=== PATIENT | male | born 1945 | race Hispanic/Latino ===

== ENCOUNTER 2021-07-31 07:38 | Emergency (ER) | payer OTHER ==
--- OUTSIDE RECORDS SUMMARY | 2021-07-31 07:43 | XMS REPORT | Continuity of Care Document ---
:1945 Author Organization [facility] t Address [address] [place] [address] Care Team Providers Name Role Phone Marisel CUETO Primary Care Physician NADIA Attending Clinician Unavailable Pravin CUETO, T. Attending Clinician Moira Avalos MD Attending Clinician NADIA Admitting Clinician Unavailable BAILEY Admitting Clinician Unavailable Payers Payer Name Policy Type Policy Number Effective Date Expiration Date Brittnee hewitt [employer] (MEDICARE [id number] 2019 REPLACEMENT PPO) 00:00:00 [employer] (PPO) [id number] 2019 00:00:00 Problems Condition Condition Condition Status Onset Resolution Last Treating Co mments Source Name Details Category Date Date Treatment Clinician Date Salmonella Salmonella Problem Active [facility] gastroente Gastroente 7-15 da ritis [facility] Enterocoli Enterocoli Problem Active [facility] tis tis 7-14 da [facility] Myopia Myopia Problem Active [facility] 3-19 da 00:[facility] Regular Regular Problem Active [facility]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 Astigmatis 3-19 da m m 00:[facility] Presbyopia Presbyopia Problem Active [facility] 3-19 da 00:[facility] Diabetic Diabetic Problem Active [facility] retinopath Retinopath 319 da y y 00:00: [facility] screening Screening 00 al offered Offered [facility] Hypertensi Hypertensi Problem Active [facility] ve ve 703 da disorder Disorder 00:00: [facility] Hyperglyce Hyperglyce Problem Active [facility] tonya due to tonya Due to 11-22 da type 2 Type 2 00:00: [facility] diabetes Diabetes 00 al mellitus Mellitus [facility] Facial Facial Problem Active [facility] weakness, Weakness, da lower Lower [facility] motor Motor al neurone Neurone [facility] Finding of Finding of Problem Active [facility] shoulder Shoulder da joint Joint [facility] Backache Backache Problem Active [place] [facility] Cough Cough Problem Active [facility] Strain of Strain of Problem Active [facility] abdominal Abdominal da muscle Muscle [facility] Contusion Contusion Problem Active [facility] of hip of Hip da [facility] Fall Fall Problem [facility] [place] Allergies, Adverse Reactions, Alerts This patient has no known allergies or adverse reactions. Social History Social Habit Start Date Stop Date Quantity Comments Source Tobacco use and 2020-12-03 2020-12-03 Never used [facility] exposure 00:00:00 00:00:00 Hospital Alcohol intake 2020-12-03 2020-12-03 Ex-drinker [facility] 00:00:00 00:00:00 (finding) Hospital Sex Assigned At [birth year] [facility] 00:[facility]:00 [facility] Smoking Status Start Date Stop Date Source Never smoker [facility] Medications Ordered Filled Start Stop Current Ordering Indication Dosage Frequency Signature Comments Components Source Medication Medication Date Date Medication? Clinician (SIG) Name Name ondansetron 2020- No 4mg Q8H Take 4 mg [facility] (ZOFRAN) 4 12-[address] MG tablet 21:00: 00:00 every 8 [facility] 38 :00 (eight) l hours as needed for nausea or vomiting. amoxicillin 2020- No 1{tbl} Q.5D Take 1 M [facility]i -pot 12-[address] clavulanate 21:00: 00:00 mouth 2 [facility] (AUGMENTIN) 38 :00 (two) l 875-125 mg times a per tablet day. glipiZIDE Yes 2.5mg QD Take 2.5 [facility] (GLUCOTROL) 7-[address] 2.5 MG 24 21:00: mouth [facility]osp[facility] hr tablet 33 daily. l enalapril Yes 2.5mg QD Take 2.5 [facility] (VASOTEC) 7-[address] 2.5 MG 21:00: mouth [facility] tablet 33 daily. l metFORMIN 0 Yes 1000mg Q.5D Take 1,000 [facility] (GLUCOPHAGE 7-[address] ) 1,000 mg 21:00: mouth 2 [facility] tablet 33 (two) l times a day with meals. SITagliptin 0 Yes 100mg QD Take 100 M [facility] (JANUVIA) 7-[address] 100 MG 21:00: mouth [facility]osp[facility] tablet 33 daily. l atorvastati Yes 10mg QD Take 10 mg [facility] n (LIPITOR) -[address] 10 mg 21:00: daily. [facility]ospita tablet 33 l levoFLOXaci 2020- No 750mg QD Take 1 Me thodi n 12-[address] (Levaquin) 00:00: 04:59 (750 mg [facility] she[facility] 750 MG 00 :00 total) by l tablet mouth daily for 7 days. Accu-Chek Accu-Chek No Accu-Chek [facility] Softclix Softclix Softclix da Lancets Lancets Lancets [facility] albuterol albuterol No albuterol [place] sulfate HFA sulfate HFA sulfate da 90 90 HFA 90 [facility] mcg/actuati mcg/actuati mcg/actuat al on aerosol on aerosol ion Hea lth inhaler inhaler aerosol Outrea c Inhale 2 Inhale 2 inhaler h puffs every puffs every Inhale 2 Program 4-6 hours 4-6 hours puffs by by every 4-6 inhalation inhalation hours by route as route as inhalation needed for needed for route as 30 days. 30 days. needed for 30 days. atorvastati atorvastati No 10mg atorvastat [place] n 10 mg n 10 mg in 10 mg da tablet 10 tablet 10 tablet 10 [facility] mg by oral mg by oral mg by oral al route. route. route. [facility] BD Alcohol BD Alcohol No BD Alcohol [place] Swabs Apply Swabs Apply Swabs da 1 pad every 1 pad every Apply 1 [facility] day by day by pad every al topical topical day by Health route as route as topical Outr eac directed. directed. route as h directed. Program cefdinir cefdinir No cefdinir [place] 300 mg 300 mg 300 mg da capsule capsule capsule [facility] p Take 1 Take 1 Take 1 al capsule capsule capsule Health every 12 every 12 every 12 Out reac hours by hours by hours by h oral route oral route oral route Program for 10 for 10 for 10 days. days. days. clotrimazol clotrimazol No clotrimazo [place] e 1 % e 1 % le 1 % da topical topical topical [facility] p cream APPLY cream APPLY cream al CREAM CREAM APPLY Health TOPICALLY TOPICALLY CREAM Outr eac TO AFFECTED TO AFFECTED TOPICALLY h AND AND TO Program SURROUNDING SURROUNDING AFFECTED AREA(S) OF AREA(S) OF AND SKIN TWICE SKIN TWICE SURROUNDIN DAILY IN DAILY IN G AREA(S) THE MORNING THE MORNING OF SKIN AND IN THE AND IN THE TWICE EVENING EVENING DAILY IN THE MORNING AND IN THE EVENING enalapril enalapril No 2.5mg Q1D enalapril [place] maleate 2.5 maleate 2.5 maleate da mg tablet mg tablet 2.5 mg Epi scop Take 2.5 mg Take 2.5 mg tablet al every day every day Take 2.5 H ealth by oral by oral mg every Outre ac route. route. day by h oral Program route. fluconazole fluconazole No fluconazol [place] 150 mg 150 mg e 150 mg da tablet TAKE tablet TAKE tablet [facility] ONE TABLET ONE TABLET TAKE ONE al BY MOUTH BY MOUTH TABLET BY Health A SINGLE A SINGLE MOUTH A O utreac DOSE DOSE SINGLE h DOSE Program glipizide glipizide No 2.5mg glipizide [place] ER 2.5 mg ER 2.5 mg ER 2.5 mg da tablet, tablet, tablet, [facility] p extended extended extended al release 24 release 24 release 24 Health hr 2.5 mg hr 2.5 mg hr 2.5 mg Outreac by oral by oral by oral h route. route. route. Program Jardiance Jardiance No Jardiance [place] 10 mg 10 mg 10 mg da tablet Take tablet Take tablet [facility] 1 tablet(s) 1 tablet(s) Take 1 al every day every day tablet(s) Health by oral by oral every day Outr eac route. route. by oral h route. Program metformin metformin No 1000mg BID metformin [place] 1,000 mg 1,000 mg 1,000 mg da tablet tablet tablet [facility] 1000 mg 1000 mg 1000 mg al twice a day twice a day twice a Health by oral by oral day by Outreac route. route. oral h route. Program naftifine 2 naftifine 2 No naftifine [place] % topical % topical 2 % da cream APPLY cream APPLY topical [facility] A THIN A THIN cream al LAYER TO LAYER TO APPLY A H ealth THE THE THIN LAYER Outreac AFFECTED AFFECTED TO THE h AREA(S) AREA(S) AFFECTED Progr am PLUS A 0.5 PLUS A 0.5 AREA(S) INCH MARGIN INCH MARGIN PLUS A 0.5 OF HEALTHY OF HEALTHY INCH SURROUNDING SURROUNDING MARGIN OF SKIN BY SKIN BY HEALTHY TOPICAL TOPICAL SURROUNDIN ROUTE ONCE ROUTE ONCE G SKIN BY DAILY FOR 2 DAILY FOR 2 TOPICAL WEEKS WEEKS ROUTE ONCE DAILY FOR 2 WEEKS omeprazole omeprazole No omeprazole [place] 40 mg 40 mg 40 mg da capsule,del capsule,del capsule,de [facility] ayed ayprudence layed al release release release Health take 1 take 1 take 1 Outreac capsule by capsule by capsule by h mouth every mouth every mouth Program other day other day every 30-45 min 30-45 min other day before before 30-45 min eating eating before eating OneTouch OneTouch No OneTouch [facility] Verio test Verio test Verio test da strips USE strips USE strips USE [facility] 1 STRIP 1 STRIP 1 STRIP al ONCE DAILY ONCE DAILY ONCE DAILY Health FOR BLOOD FOR BLOOD FOR BLOOD Outreac GLUCOSE GLUCOSE GLUCOSE h CHECK CHECK CHECK Program Ozempic Ozempic No Ozempic [facility] 0.25 mg or 0.25 mg or 0.25 mg or da 0.5 mg (2 0.5 mg (2 0.5 mg (2 [facility] mg/1.5 mL) mg/1.5 mL) mg/1.5 mL) al [facility] pen s pen us pen Outreac injector injector injector h INJECT 0.5 INJECT 0.5 INJECT 0.5 Program MG UNDER MG UNDER MG UNDER THE SKIN THE SKIN THE SKIN EVERY WEEK EVERY WEEK EVERY WEEK triamcinolo triamcinolo No triamcinol [place] ne ne one da acetonide acetonide acetonide [facility] 0.025 % 0.025 % 0.025 % al topical topical topical Health cream APPLY cream APPLY cream Outreac CREAM CREAM APPLY h TOPICALLY TOPICALLY CREAM Prog jus TO AFFECTED TO AFFECTED TOPICALLY AREA TWICE AREA TWICE TO DAILY DAILY AFFECTED AREA TWICE DAILY [place] DM [place] DM No [place] DM [place] 10 mg-18 10 mg-18 10 mg-18 da mg-200 mg-200 mg-200 [facility] mg/15 mL mg/15 mL mg/15 mL al oral liquid oral liquid oral H ealth Take 10 mL Take 10 mL liquid O utreac every 4-6 every 4-6 Take 10 mL h hours by hours by every 4-6 Pr ogram oral route oral route hours by as needed. as needed. oral route as needed. Xopenex HFA Xopenex HFA No 2puff(s Q5H Xopenex [place] 45 45 ) HFA 45 da mcg/actuati mcg/actuati mcg/actuat [facility] on aerosol on aerosol ion al inhaler inhaler aerosol Health Inhale 2 Inhale 2 inhaler Outr eac puffs every puffs every Inhale 2 h 4-6 hours 4-6 hours puffs Prog jus by by every 4-6 inhalation inhalation hours by route as route as inhalation needed. needed. route as needed. Immunizations Ordered Immunization Filled Immunization Date Status Commen ts Source Name Name Influenza vaccine, Influenza vaccine, 2021-04-08 Completed [facility] quadrivalent, quadrivalent, 12:26:34 [facility] adjuvanted adjuvanted [facility] COVID-19, mRNA, COVID-19, mRNA, 2021-04-01 Completed [facility] emma LNP-S, PF, 100 LNP-S, PF, 100 15:54:09 [facility] pal mcg/0.5 mL dose mcg/0.5 mL dose [facility] (Moderna) (Moderna) Program pneumococcal pneumococcal 2020-10-27 Completed [facility] polysaccharide PPV23 polysaccharide PPV23 16:31:00 [facility] COVID-19, mRNA, COVID-19, mRNA, 2020-07-25 Completed [facility] emma LNP-S, PF, 100 LNP-S, PF, 100 13:38:47 [facility] pal mcg/0.5 mL dose mcg/0.5 mL dose [facility] (Moderna) (Moderna) Program COVID-19, mRNA, COVID-19, mRNA, 2020-06-18 Completed [facility] em[facility] LNP-S, PF, 100 LNP-S, PF, 100 12:55:57 [facility] pal mcg/0.5 mL dose mcg/0.5 mL dose [facility] (Moderna) (Moderna) Program influenza, influenza, 2020-03-17 Completed [facility] injectable, injectable, 00:00:00 [facility] quadrivalent quadrivalent [facility] Tdap Tdap 2019-12-20 Completed [facility] 00:00:00 [facility] zoster recombinant zoster recombinant 2019-10-30 Completed [facility] 00:00:00 [facility] influenza, influenza, 2019-03-28 Completed [facility] injectable, injectable, 00:00:00 [facility] quadrivalent quadrivalent [facility] influenza, influenza, 2018-02-20 Completed [facility] injectable, injectable, 00:00:00 [facility] quadrivalent quadrivalent [facility] influenza, influenza, 2017-02-17 Completed [facility] unspecified unspecified 00:00:00 [facility] formulation formulation [facility] Outre [facility] pneumococcal pneumococcal 2015-07-17 Completed [facility] conjugate PCV 13 conjugate PCV 13 00:00:00 [facility] Tdap Tdap 2013-12-10 Completed [facility] 00:00:00 [facility] pneumococcal pneumococcal 2012-09-20 Completed [facility] polysaccharide PPV23 polysaccharide PPV23 00:00:00 [facility] Vital Signs Vital Name Observation Time Observation Value Comments Source BP Diastolic 2021-06-03 00:00:00 78 mm[Hg] [place] [facility] Height 2021-06-03 00:00:00 64 [in_i] [place] [facility] BMI (Body Mass 2021-06-03 00:00:00 26.4 kg/m2 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 Index) [facility] BP Systolic 2021-06-03 00:00:00 116 mm[Hg] [place] [facility] Body Weight 2021-06-03 00:00:00 2464 [oz_av] [place] [facility] BP Diastolic 2021-05-06 00:00:00 75 mm[Hg] [place] [facility] Height 2021-05-06 00:00:00 64 [in_i] [place] [facility] BMI (Body Mass 2021-05-06 00:00:00 26.6 kg/m2 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 Index) [facility] BP Systolic 2021-05-06 00:00:00 123 mm[Hg] [place] [facility] Body Weight 2021-05-06 00:00:00 2482 [oz_av] [place] [facility] BP Diastolic 2021-04-08 00:00:00 82 mm[Hg] [place] [facility] Height 2021-04-08 00:00:00 64 [in_i] [place] [facility] BMI (Body Mass 2021-04-08 00:00:00 26.6 kg/m2 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 Index) [facility] BP Systolic 2021-04-08 00:00:00 146 mm[Hg] [place] [facility] Body Weight 2021-04-08 00:00:00 2480 [oz_av] [place] [facility] BP Diastolic 2021-02-22 00:00:00 74 mm[Hg] [place] [facility] Height 2021-02-22 00:00:00 64 [in_i] [place] [facility] BMI (Body Mass 2021-02-22 00:00:00 27.6 kg/m2 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 Index) [facility] BP Systolic 2021-02-22 00:00:00 129 mm[Hg] [place] [facility] Body Weight 2021-02-22 00:00:00 2572.8 [oz_av] 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 BP Diastolic 2021-01-05 00:00:00 68 mm[Hg] [place] [facility] Height 2021-01-05 00:00:00 64 [in_i] [place] [facility] BMI (Body Mass 2021-01-05 00:00:00 27.1 kg/m2 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 Index) [facility] BP Systolic 2021-01-05 00:00:00 112 mm[Hg] [place] [facility] Body Weight 2021-01-05 00:00:00 2528 [oz_av] [place] [facility] BP Diastolic 2020-12-15 00:00:00 74 mm[Hg] [place] [facility] Height 2020-12-15 00:00:00 64 [in_i] [place] [facility] BMI (Body Mass 2020-12-15 00:00:00 26.8 kg/m2 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 Index) [facility] BP Systolic 2020-12-15 00:00:00 117 mm[Hg] [place] [facility] Body Weight 2020-12-15 00:00:00 2496 [oz_av] [place] [facility] Height 2020-12-01 00:00:00 64 [in_i] [place] [facility] BMI (Body Mass 2020-12-01 00:00:00 28.8 kg/m2 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 Index) [facility] Body Weight 2020-12-01 00:00:00 2688 [oz_av] [place] [facility] BP Diastolic 2020-10-27 00:00:00 56 mm[Hg] [place] [facility] Height 2020-10-27 00:00:00 64 [in_i] [place] [facility] BMI (Body Mass 2020-10-27 00:00:00 28.9 kg/m2 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 Index) [facility] BP Systolic 2020-10-27 00:00:00 106 mm[Hg] [place] [facility] Body Weight 2020-10-27 00:00:00 2691.2 [oz_av] 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 BP Diastolic 2020-08-25 00:00:00 74 mm[Hg] [place] [facility] Height 2020-08-25 00:00:00 64 [in_i] [place] [facility] BMI (Body Mass 2020-08-25 00:00:00 29 kg/m2 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 Index) [facility] BP Systolic 2020-08-25 00:00:00 122 mm[Hg] [place] [facility] Body Weight 2020-08-25 00:00:00 2704 [oz_av] [place] [facility] BP Diastolic 2020-05-22 00:00:00 76 mm[Hg] [place] [facility] Height 2020-05-22 00:00:00 64 [in_i] [place] [facility] BMI (Body Mass 2020-05-22 00:00:00 29.5 kg/m2 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 Index) [facility] BP Systolic 2020-05-22 00:00:00 122 mm[Hg] [place] [facility] Body Weight 2020-05-22 00:00:00 2752 [oz_av] [place] [facility] BP Diastolic 2019-12-19 00:00:00 62 mm[Hg] [place] [facility] Height 2019-12-19 00:00:00 64 [in_i] [place] [facility] BMI (Body Mass 2019-12-19 00:00:00 29.1 kg/m2 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 Index) [facility] BP Systolic 2019-12-19 00:00:00 106 mm[Hg] [place] [facility] Body Weight 2019-12-19 00:00:00 2712 [oz_av] [place] [facility] BP Diastolic 2019-11-05 00:00:00 80 mm[Hg] [place] [facility] Height 2019-11-05 00:00:00 64 [in_i] [place] [facility] BMI (Body Mass 2019-11-05 00:00:00 29.2 kg/m2 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 Index) [facility] BP Systolic 2019-11-05 00:00:00 122 mm[Hg] [place] [facility] Body Weight 2019-11-05 00:00:00 2724.8 [oz_av] 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 Height 2019-11-02 00:00:00 64 [in_i] [place] [facility] Height 2019-09-10 00:00:00 64 [in_i] [place] [facility] BP Diastolic 2019-08-07 00:00:00 81 mm[Hg] [place] [facility] Height 2019-08-07 00:00:00 64 [in_i] [place] [facility] BP Systolic 2019-08-07 00:00:00 120 mm[Hg] [place] [facility] BP Diastolic 2019-07-10 00:00:00 73 mm[Hg] [place] [facility] Height 2019-07-10 00:00:00 64 [in_i] [place] [facility] BMI (Body Mass 2019-07-10 00:00:00 29.6 kg/m2 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 Index) [facility] BP Systolic 2019-07-10 00:00:00 123 mm[Hg] [place] [facility] Body Weight 2019-07-10 00:00:00 172.2 [lb_av] [place] [facility] BP Diastolic 2019-07-02 00:00:00 72 mm[Hg] [place] [facility] Height 2019-07-02 00:00:00 64 [in_i] [place] [facility] BMI (Body Mass 2019-07-02 00:00:00 29.5 kg/m2 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 Index) [facility] BP Systolic 2019-07-02 00:00:00 126 mm[Hg] [place] [facility] Body Weight 2019-07-02 00:00:00 172.1 [lb_av] [place] [facility] BP Diastolic 2019-05-25 00:00:00 78 mm[Hg] [place] [facility] Height 2019-05-25 00:00:00 64 [in_i] [place] [facility] BMI (Body Mass 2019-05-25 00:00:00 29.9 kg/m2 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 Index) [facility] BP Systolic 2019-05-25 00:00:00 138 mm[Hg] [place] [facility] Body Weight 2019-05-25 00:00:00 174.4 [lb_av] [place] [facility] BP Diastolic 2019-05-10 00:00:00 88 mm[Hg] [place] [facility] Height 2019-05-10 00:00:00 64 [in_i] [place] [facility] BMI (Body Mass 2019-05-10 00:00:00 30 kg/m2 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 Index) [facility] BP Systolic 2019-05-10 00:00:00 150 mm[Hg] [place] [facility] Body Weight 2019-05-10 00:00:00 175 [lb_av] [place] [facility] BP Diastolic 2019-02-22 00:00:00 74 mm[Hg] [place] [facility] Height 2019-02-22 00:00:00 64 [in_i] [place] [facility] BMI (Body Mass 2019-02-22 00:00:00 30.1 kg/m2 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 Index) [facility] BP Systolic 2019-02-22 00:00:00 122 mm[Hg] [place] [facility] Body Weight 2019-02-22 00:00:00 175.6 [lb_av] [place] [facility] BP Diastolic 2019-01-24 00:00:00 70 mm[Hg] [place] [facility] Height 2019-01-24 00:00:00 64 [in_i] [place] [facility] BMI (Body Mass 2019-01-24 00:00:00 29.7 kg/m2 [facility] cancer 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 Index) [facility] BP Systolic 2019-01-24 00:00:00 122 mm[Hg] [place] [facility] Body Weight 2019-01-24 00:00:00 173.2 [lb_av] [place] [facility] Systolic blood 2020-12-08 16:26:48 122 mm[Hg] [facility] pressure Diastolic blood 2020-12-08 16:26:48 73 mm[Hg] [facility] pressure Heart rate 2020-12-08 16:26:48 72 /min [facility] Body temperature 2020-12-08 16:26:48 36.06 Sravani [facility] Respiratory rate 2020-12-08 16:26:48 16 /min [facility] Oxygen saturation in 2020-12-08 16:26:48 94 /min [facility] Arterial blood by Pulse oximetry Body weight 2020-12-03 20:04:00 71.85 kg [facility] Procedures Procedure Date / Time Performing Clinician Source Performed POC GLUCOSE 2020-12-08 16:28:00 [facility] POC GLUCOSE 2020-12-08 12:21:00 [facility] CBC WITH PLATELET AND 2020-12-08 11:25:00 [place] [facility] DIFFERENTIAL [facility] BASIC METABOLIC PANEL 2020-12-08 11:25:00 [place] [facility] MAGNESIUM LEVEL 2020-12-08 11:25:00 [facility] PHOSPHORUS LEVEL 2020-12-08 11:25:00 [facility] [facility] ESTIMATED GFR 2020-12-08 11:25:00 [facility] [place] MANUAL DIFFERENTIAL 2020-12-08 11:25:00 Bailey [facility] [place] POC GLUCOSE 2020-12-08 01:36:00 [facility] [place] POC GLUCOSE 2020-12-07 22:13:00 [facility] [place] POC GLUCOSE 2020-12-07 17:07:00 [place] [facility] [place] POC GLUCOSE 2020-12-07 13:15:00 [facility] [place] COMPREHENSIVE METABOLIC 2020-12-07 09:53:00 Cristhian Avalos [facility] PANEL [place] CBC WITH PLATELET AND 2020-12-07 09:53:00 Cristhian Avalos [facility] DIFFERENTIAL [place] MAGNESIUM LEVEL 2020-12-07 09:53:00 [facility] [place] PHOSPHORUS LEVEL 2020-12-07 09:53:00 Bailey [facility] [place] ESTIMATED GFR 2020-12-07 09:53:00 [facility] [place] MANUAL DIFFERENTIAL 2020-12-07 09:53:00 [facility] [place] POC GLUCOSE 2020-12-07 00:24:00 [facility] [place] POC GLUCOSE 2020-12-06 22:23:00 [facility] [place] POC GLUCOSE 2020-12-06 17:04:00 Viett[place] [facility] POC GLUCOSE 2020-12-06 12:31:00 [facility] [place] CBC WITH PLATELET AND 2020-12-06 10:40:[facility] [place] COMPREHENSIVE METABOLIC 2020-12-06 10:40:00 Zain [facility] PANEL Moira MAGNESIUM LEVEL 2020-12-06 10:40:00 [facility] [place] PHOSPHORUS LEVEL 2020-12-06 10:40:00 [facility] [place] ESTIMATED GFR 2020-12-06 10:40:00 [facility] [place] MANUAL DIFFERENTIAL 2020-12-06 10:40:00 [facility] [place] POC GLUCOSE 2020-12-06 01:39:00 [facility] [place] POC GLUCOSE 2020-12-05 20:21:[address] [facility] [place] POC GLUCOSE 2020-12-05 16:52:[address] [facility] [place] POC GLUCOSE 2020-12-05 12:38:[address] [facility] [place] RAPID HIV 1 & 2 2020-12-05 10:07:00 Cary Olvera Ho spital CBC WITH PLATELET AND 2020-12-05 10:07:00 [facility] DIFFERENTIAL [place] BASIC METABOLIC PANEL 2020-12-05 10:07:[address] [facility] [place] MAGNESIUM LEVEL 2020-12-05 10:07:[address] [facility] [place] PHOSPHORUS LEVEL 2020-12-05 10:07:[address] [facility] [place] ESTIMATED GFR 2020-12-05 10:07:[address] [facility] [place] MANUAL DIFFERENTIAL 2020-12-05 10:07:[address] [facility] [place]ira POC GLUCOSE 2020-12-05 00:28:00 [facility] [place] POC GLUCOSE 2020-12-04 22:08:00 Bailey [facility] BLOOD CULTURE, AEROBIC & 2020-12-04 21:42:00 WadeCary oconnell [facility] ANAEROBIC BLOOD CULTURE, AEROBIC & 2020-12-04 21:39:00 Cary Olvera [facility] ANAEROBIC POC GLUCOSE 2020-12-04 16:58:00 Bailey [facility] Moira POC GLUCOSE 2020-12-04 13:29:00 Bailey [facility] COMPREHENSIVE METABOLIC 2020-12-04 10:07:00 Cristhian Avalos [facility] PANEL [place]ira MAGNESIUM LEVEL 2020-12-04 10:07:00 ViettngillianB[facility] PHOSPHORUS LEVEL 2020-12-04 10:07:00 Vietinova [facility] hospitaljoi [facility] CBC WITH PLATELET AND 2020-12-04 10:07:00 Cristhian Avalos [facility] DIFFERENTIAL Moira ESTIMATED GFR 2020-12-04 10:07:00 Bailey [facility] [place] MANUAL DIFFERENTIAL 2020-12-04 10:07:00 [facility] P[facility]UCOSE 2020-12-04 01:47:00 Bailey [facility] CT ABDOMEN PELVIS W 2020-12-04 00:36:11 Bailey [facility] CONTRAST Moira POC GLUCOSE 2020-12-03 22:14:00 Bailey [facility] GASTROINTESTINAL PANEL 2020-12-03 21:57:00 Cristhian Avalos [facility] SALMONELLA/SHIGELLA CULTURE 2020-12-03 21:57:00 [facility]ain [facility] [place] LACTIC ACID LEVEL, SEPSIS - 2020-12-03 21:55:00 Bailey [facility] NOW AND REPEAT 2X EVERY 3 Moira HOURS LACTIC ACID LEVEL, SEPSIS - 2020-12-03 19:11:00 [facility]ain [facility] NOW AND REPEAT 2X EVERY 3 Moira HOURS XR CHEST 1 VW PORTABLE 2020-12-03 16:15:13 [facility] 2020-12-03 16:07:00 [facility] URINALYSIS SCREEN AND 2020-12-03 16:07:00 [facility] MICROSCOPY, WITH REFLEX TO CULTURE CBC WITH PLATELET AND 2020-12-03 16:06:00 [facility] DIFFERENTIAL COMPREHENSIVE METABOLIC 2020-12-03 16:06:00 [facility] PANEL MAGNESIUM LEVEL 2020-12-03 16:06:00 [facility] LACTIC ACID LEVEL, SEPSIS - 2020-12-03 16:06:00 [facility] NOW AND REPEAT 2X EVERY 3 Moira HOURS LIPASE LEVEL 2020-12-03 16:06:00 [facility] ESTIMATED GFR 2020-12-03 16:06:00 [facility] MANUAL DIFFERENTIAL 2020-12-03 16:06:00 [facility] GASTROINTESTINAL PANEL 2020-12-03 16:05:00 [facility] RESPIRATORY PATHOGEN PANEL 2020-12-03 16:05:00 [facility] WITH COVID-19 RT-PCR SALMONELLA/SHIGELLA CULTURE 2020-12-03 16:05:00 [facility] ECG 12-LEAD 2020-12-03 15:12:16 [facility] ECG ED PRELIMINARY 2020-12-03 15:08:46 [facility] INTERPRETATION Colonoscopy 2019-07-19 00:00:00 [facility] iscopal [facility] Outreach Program ELECTROCARDIOGRAM, COMPLETE 2019-07-02 00:00:00 [facility] scopal Health Outreach Program Plan of Care Planned Activity Planned Date Details Comments Source Future Scheduled Test DIABETIC FOOT EXAM [facility] [code = DIABETIC FOOT EXAM] Future Scheduled Test URINE [facility]UM[facility] [code = URINE MICROALBUMIN] Future Scheduled Test Hepatitis C screening [facility] (procedure) [code = 387897459] Future Scheduled Test COLONOSCOPY SCREENING [facility] [code = COLONOSCOPY SCREENING] Future Scheduled Test SHINGLES VACCINES (#1) [facility] [code = SHINGLES VACCINES (#1)] Future Scheduled Test INFLUENZA VACCINE [code [facility] = INFLUENZA VACCINE] Future Scheduled Test DIABETES: RETINAL EYE [facility] EXAM [code = DIABETES: RETINAL EYE EXAM] Encounters Start End Encounter Admission Attending Care Care Encounter Source Date/Time Date/Time Type Type Clinicians Facility Department ID 2021-07-19 2021-07-19 Out[place] [facility] [id number] [place] 02:12:00 02:12:00 RAD[facility]227 [facility] 2021-06-03 2021-06-03 Outpatient [facility] [id number] [place] 05:42:00 05:42:00 RADHA 0112 [facility] 2021-06-03 2021-06-03 [facility] [place] - [id number] M [place] 00:00:00 00:00:00 Jose Joiner MD: 1700 [facility] [place] [address] h , Ph. Program 2021-05-06 2021-05-06 Outpatient [facility] [id number] [place] 03:25:00 03:25:00 RADHA 1215 [facility] 2021-05-06 2021-05-06 [facility] [place] - [id number] M at[place] 00:00:00 00:00:00 Jose Joiner MD: 1700 [facility] [place] [address] h , Ph. Program 2021-04-08 2021-04-08 Outpatient [facility] [id number] [place] 12:37:00 12:37:00 HANA 1117 [facility] 2021-04-08 2021-04-08 Gosia [facility] [place] - [id number] M at[place]or 00:00:00 00:00:00 Jose Joiner MD: 1700 [facility] [place] [address] h , Ph. Program 2021-04-01 2021-04-01 Outpatient [facility] [id number] [place] 04:45:00 04:45:00 HANA 1110 [facility] 2021-04-01 2021-04-01 Gosia [facility] [place] - [id number] M at[place]or 00:00:00 00:00:00 Jose Joiner MD: 1700 [facility] [place] [address] h , Ph. Program 2021-02-23 2021-02-23 Outpatient [facility] [id number] [place] 07:51:00 07:51:00 HANA 1004 [facility] 2021-02-22 2021-02-22 [id number] [place] 11:56:00 11:56:00 HANA 1003 [facility] 2021-02-22 2021-02-22 Flores Perla [facility] [place] - [id number] [place] 00:00:00 00:00:00 Jose Calhoun PONDMAN: 1700 [facility] [address] h , Ph. Program 2021-01-05 2021-01-05 Outpatient [facility] [id number] [place] 11:15:00 11:15:00 HANA 0816 [facility] 2021-01-05 2021-01-05 Gosia [facility] [place] - [id number] M at[place] 00:00:00 00:00:00 Jose Joiner MD: 1700 [facility] [address] [facility] , Ph. Program 2020-12-29 2020-12-29 Outpatient [facility] [id number] [place] 09:21:00 09:21:00 HANA 0809 [facility] 2020-12-16 2020-12-16 Outpatient [facility] [id number] [place] 11:05:00 11:05:00 HANA 0727 [facility] 2020-12-15 2020-12-15 Outpatient [place] [id number] [place] 05:56:00 05:56:00 HANA 0726 [facility] 2020-12-15 2020-12-15 [facility] [place] [facility] [id number] [place] 00:00:00 00:00:00 Jose Mccormick PONDMAN: 1700 [facility] [address] [facility] , Ph. Program 2020-12-03 2020-12-08 [facility] Dung Costello [id number] Methodi 10:06:00 15:59:00 [facility] Cristhian Avalos [id number] Hospit a [id number] l .8 2020-12-01 2020-12-01 Outpatient [facility] [id number] [place] 09:03:00 09:03:00 HANA 0712 [facility] 2020-12-01 2020-12-01 You [facility] [place] - [id number] [place] 00:00:00 00:00:00 Jose Mccormick PONDMAN: [address] [facility] [address] [address] h , Ph. Program 2020-10-27 2020-10-27 Outpatient [facility] [id number] [place] 11:56:00 11:56:00 HANA 0607 [facility] 2020-10-27 2020-10-27 Gosia [facility] [place] - [id number] M at[place]or 00:00:00 00:00:00 Jose Joiner MD: 1700 [facility] [address] [facility] , Ph. Program 2020-10-07 2020-10-07 Outpatient [facility] [id number] [place] 04:33:00 04:33:00 HANA 0603 [facility] 2020-08-25 2020-08-25 Outpatient [place] [id number] [place] 11:37:00 11:37:00 HANA 0405 [facility] 2020-08-25 2020-08-25 [facility] [place] - [id number] M at[place]or 00:00:00 00:00:00 Jose Joiner MD: 1700 [facility] [place] [address] h , Ph. Program 2020-07-25 2020-07-25 Outpatient [facility] [id number] [place] 01:40:00 01:40:00 HANA 0305 [facility] 2020-07-25 2020-07-25 [facility] [place] - [id number] M at[place] 00:00:00 00:00:00 Jose Joiner MD: 1700 [facility] [address] h , Ph. Program 2020-06-18 2020-06-18 Outpatient [place] [id number] [place] 01:09:00 01:09:00 HANA 0127 [facility] 2020-06-18 2020-06-18 Outpatient [place] [id number] [place] 01:09:00 01:09:00 HANA 0202 [facility] 2020-06-18 2020-06-18 Gosia [facility] [id number] atagor 00:00:00 00:00:00 Jose Joiner MD: 1700 [facility] [address] h , Ph. Program 2020-05-22 2020-05-22 Outpatient [place] [id number] [place] 05:56:00 05:56:00 HANA 1231 [facility] 2020-05-22 2020-05-22 Nay [facility] [id number] [place]or 00:00:00 00:00:00 Pau Tracy, [facility] PONDMAN: 1700 [facility] [address] [facility] , Ph. 2019-12-31 2019-12-31 Outpatient [place] [id number] [place] 02:57:00 02:57:00 HANA 0901 [facility] 2019-12-31 2019-12-31 Outpatient [place] [id number] [place] 02:57:00 02:57:00 HANA 0902 [facility] 2019-12-19 2019-12-19 Outpatient [facility]BREEN[facility]FAR [facility] [place] 10:59:00 10:59:00 HANA 0729 [facility] 2019-12-19 2019-12-19 [facility] [place] - [id number] M at[place]or 00:00:00 00:00:00 Jose Joiner MD: 1700 [facility] [place] [address] h , Ph. Program 2019-12-10 2019-12-10 Outpatient AMBREEN_FAR MEHOP MEHOP [facility] [place] 12:17:00 12:17:00 HANA 0720 [facility] 2019-11-05 2019-11-05 Outpatient AMBREEN_[facility]AR [facility] [place] 01:33:00 01:33:00 HANA 0615 [facility] 2019-11-05 2019-11-05 Gosia [facility] [place] - [id number] M at[place]or 00:00:00 00:00:00 Jose Joiner MD: 1700 [facility] [place] [address] h , Ph. Program 2019-11-02 2019-11-02 Outpatient AMBREEN[facility] [place] [id number] [place] 10:14:00 10:14:00 HANA 0612 [facility] 2019-11-02 2019-11-02 Schuyler Jt [facility] [place] - [id number] [place] 00:00:00 00:00:00 FANNY Berry: Jose perla 1700 [facility] - [address], [place], [place] 3 [place] [address] h , Ph. Program 2019-09-17 2019-09-17 Outpatient AMBREEN_[place] [id number] [place] 11:24:00 11:24:00 HANA 0427 [facility] 2019-09-10 2019-09-10 Outpatient [place] [id number] [place] 05:42:00 05:42:00 HANA 0420 [facility] 2019-09-10 2019-09-10 Gosia [facility] [place] - [id number] M at[place]or 00:00:00 00:00:00 Jose Joiner MD: 1700 [facility] [address], [facility], [facility] [address] h , Ph. Program 2019-09-07 2019-09-07 Outpatient [place] [id number] [place] 12:11:00 12:11:00 HANA 0417 [facility] 2019-08-07 2019-08-07 Outpatient [place] [id number] [place] 05:15:00 05:15:00 HANA 0317 [facility] 2019-08-07 2019-08-07 Flores Perla [facility] [place] - [id number] [place] 00:00:00 00:00:00 Jose Calhoun PONDMAN: 1700 [facility] [address], [facility] [address] h , Ph. Program 2019-08-04 2019-08-04 Outpatient [place] [id number] [place] 01:37:00 01:37:00 HANA 0314 [facility] 2019-08-02 2019-08-02 Outpatient AMBREEN_[place]AR [place] [id number] [place] 04:29:00 04:29:00 HANA 0312 [facility] 2019-07-21 2019-07-21 Outpatient [place] [id number] [place] 11:14:00 11:14:00 HANA 0229 [facility] 2019-07-10 2019-07-10 Outpatient AMBREEN_FAR MEH[facility] RIHOP 77 [place] 06:04:00 06:04:00 HANA 0218 [facility] 2019-07-10 2019-07-10 Sb Oconnell [facility] [place] - [id number] [place] 00:00:00 00:00:00 Jose Ricardo MD: [id number] [facility] [employer] [address] [facility] [address], [facility] Program [id number] , Ph. 2019-07-02 2019-07-02 Outpatient AMBREEN[facility] [id number] [place] 05:43:00 05:43:00 HANA 0210 [facility] 2019-07-02 2019-07-02 Gosia [facility] [place] - [id number] M atagor 00:00:00 00:00:00 Jose Joiner MD: 1700 [facility], [address] [address] [facility] , Ph. 2019-05-29 2019-05-29 Outpatient AMBREEN[facility] [id number] [place] 07:46:00 07:46:00 HANA 0107 [facility] 2019-05-26 2019-05-26 Outpatient AMBREEN_FAR MEHOP RIHOP [id number] [place] 03:07:00 03:07:00 HANA 0104 [facility] 2019-05-25 2019-05-25 Outpatient AMBREEN_FAR MEHOP RIHOP [id number] [place] 04:27:00 04:27:00 HANA 0103 [facility] 2019-05-25 2019-05-25 Schuyler Waters [facility] [place] - [id number] [place] 00:00:00 00:00:00 FANNY Berry: Jose perla 1700 [facility] [place] [facility] - [address], [facility] 3, [address] [place] [address] Progr am , Ph. 2019-05-10 2019-05-10 You MALIK [place] - [id number] [place] 00:00:00 00:00:00 Jose Mccormick PONDMAN: 1700 [facility] [address], [address] [place] [address] Progr am , Ph. 2019-02-22 2019-02-22 Schuyler Waters [facility] [place] - [id number] [place] 00:00:00 00:00:00 FANNY Berry: Jose perla 1700 [facility] - [facility] [address], [facility] [address] [place] [address] Progr am , Ph. 2019-01-24 2019-01-24 Gosia [facility] [place] - [id number] M at[place]or 00:00:00 00:00:00 Jose Joiner MD: 1700 [facility] al [address], [address] [place] [address] Progr am , Ph. Results Test Description Test Time Test Comments Results Result Comments Source Comprehensive metabolic 2000 panel - Serum or Plasma 2021-05 00:00:00 Test Item Value Reference Range Interpretation Comme nts Glucose [Mass/volume] in Serum or Plasma (test code = 136 mg/dL 65-99 H 2345-7) Urea nitrogen [Mass/volume] in Serum or Plasma (test 12 mg/dL 8 -27 code = 3094-0) Creatinine [Mass/volume] in Serum or Plasma (test code 0.80 mg/dL 0.76-1.27 = 2160-0) Glomerular filtration rate/1.73 sq M.predicted among 89 mL/min/1.73 >59 non-blacks [Volume Rate/Area] in Serum, Plasma or Blood by Creatinine-based formula (CKD-EPI) (test code = 58342-4) Glomerular filtration rate/1.73 sq M.predicted among 102 mL/min/1.7 3 >59 blacks [Volume Rate/Area] in Serum, Plasma or Blood by Creatinine-based formula (CKD-EPI) (test code = 22726-5) Urea nitrogen/Creatinine [Mass Ratio] in Serum or 15 10-2 4 Plasma (test code = 3097-3) Sodium [Moles/volume] in Serum or Plasma (test code = 139 mmol/L 664-258 4223-2) Potassium [Moles/volume] in Serum or Plasma (test code 4.3 mmol/L 3.5-5.2 = 2823-3) Chloride [Moles/volume] in Serum or Plasma (test code = 102 mmol/L 96-106 2074-0) Carbon dioxide, total [Moles/volume] in Serum or Plasma 23 mmol/L 20-29 (test code = 2027-) Calcium [Mass/volume] in Serum or Plasma (test code = 8.8 mg/dL 8.6-10.2 20822-0) Protein [Mass/volume] in Serum or Plasma (test code = 6.7 g/dL 6.0-8.5 5-2) Albumin [Mass/volume] in Serum or Plasma (test code = 4.1 g/dL 3.7-4.7 1750-7) Globulin [Mass/volume] in Serum by calculation (test 2.6 g/dL 1 .5-4.5 code = 33329-2) Albumin/Globulin [Mass Ratio] in Serum or Plasma (test 1.6 1.2-2.2 code = 1759-0) Bilirubin.total [Mass/volume] in Serum or Plasma (test 0.6 mg/dL 0.0-1.2 code = 1974-2) Alkaline phosphatase [Enzymatic activity/volume] in 83 IU/L 44 -121 Serum or Plasma (test code = 6768-6) Aspartate aminotransferase [Enzymatic activity/volume] 16 IU/L 0-40 in Serum or Plasma (test code = 1920-8) Alanine aminotransferase [Enzymatic activity/volume] in 15 IU/L 0-44 Serum or Plasma (test code = 1742-6) [facility] W Auto Differential panel - Blood 2021-05-28 00:00:00 Test Item Value Reference Range Interpretation Comments Leukocytes [#/volume] in Blood 7.5 x10e3/uL 3.4-10.8 by Automated count (test code = 6690-2) Erythrocytes [#/volume] in 4.49 x10e6/uL 4.14-5.80 Blood by Automated count (test code = 789-8) Hemoglobin [Mass/volume] in 15.0 g/dL 13.0-17.7 Blood (test code = 718-7) Hematocrit [Volume Fraction] of 45.4 % 37.5-51.0 Blood by Automated count (test code = 4544-3) MCV [Entitic volume] by 101 fL 79-97 H Automated count (test code = 787-2) MCH [Entitic mass] by Automated 33.4 pg 26.6-33.0 H count (test code = 785-6) MCHC [Mass/volume] by Automated 33.0 g/dL 31.5-35.7 count (test code = 786-4) Erythrocyte distribution width 12.2 % 11.6-15.4 [Ratio] by Automated count (test code = 788-0) Platelets [#/volume] in Blood 215 x10e3/uL 150-450 by Automated count (test code = 777-3) Neutrophils/100 leukocytes in 64 % not estab. Blood by Automated count (test code = 770-8) Lymphocytes/100 leukocytes in 24 % not estab. Blood by Automated count (test code = 736-9) Monocytes/100 leukocytes in 9 % not estab. Blood by Automated count (test code = 5905-5) Eosinophils/100 leukocytes in 2 % not estab. Blood by Automated count (test code = 713-8) Basophils/100 leukocytes in 1 % not estab. Blood by Automated count (test code = 706-2) immature cells (test code = pnp immature cells) Neutrophils [#/volume] in Blood 4.8 x10e3/uL 1.4-7.0 by Automated count (test code = 751-8) Lymphocytes [#/volume] in Blood 1.8 x10e3/uL 0.7-3.1 by Automated count (test code = 731-0) Monocytes [#/volume] in Blood 0.7 x10e3/uL 0.1-0.9 by Automated count (test code = 742-7) Eosinophils [#/volume] in Blood 0.2 x10e3/uL 0.0-0.4 by Automated count (test code = 711-2) Basophils [#/volume] in Blood 0.0 x10e3/uL 0.0-0.2 by Automated count (test code = 704-7) Immature granulocytes/100 0 % not estab. leukocytes in Blood by Automated count (test code = 74083-8) Immature granulocytes 0.0 x10e3/uL 0.0-0.1 [#/volume] in Blood by Automated count (test code = 20242-5) Nucleated erythrocytes/100 pnp leukocytes [Ratio] in Blood by Automated count (test code = 71672-4) Morphology [Interpretation] in pnp Blood Narrative (test code = 82857-8) [facility]Hemoglobin.total in [id number] 00:00:00 Test Item Value Reference Range Interpretation Comments Hemoglobin A1c/Hemoglobin.total in 7.5 % 4.8-5.6 H Blood (test code = 4548-4) Glucose mean value [Mass/volume] in 169 mg/dL Blood Estimated from glycated hemoglobin (test code = 25508-3) [facility] [id number] 00:00:00 Test Item Value Reference Range Interpretation Comments pdf (test code = pdf) . [facility]Hemoglobin.gastrointestinal.lower [Presence] in Stool by [id number] 00:00:00 Test Item Value Reference Range Interpretation Comments Hemoglobin.gastrointestinal.lower negative negative [Presence] in Stool by Immunoassay (test code = 22007-7) [facility] Differential panel, method unspecified - [id number] 00:00:00 Test Item Value Reference Range Interpretation Comments Leukocytes [#/volume] in Blood 6.8 x10e3/uL 3.4-10.8 by Automated count (test code = 6690-2) Erythrocytes [#/volume] in 4.35 x10e6/uL 4.14-5.80 Blood by Automated count (test code = 789-8) Hemoglobin [Mass/volume] in 14.8 g/dL 13.0-17.7 Blood (test code = 718-7) Hematocrit [Volume Fraction] of 42.4 % 37.5-51.0 Blood by Automated count (test code = 4544-3) MCV [Entitic volume] by 98 fL 79-97 H Automated count (test code = 787-2) MCH [Entitic mass] by Automated 34.0 pg 26.6-33.0 H count (test code = 785-6) MCHC [Mass/volume] by Automated 34.9 g/dL 31.5-35.7 count (test code = 786-4) Erythrocyte distribution width 12.5 % 11.6-15.4 [Ratio] by Automated count (test code = 788-0) Platelets [#/volume] in Blood 196 x10e3/uL 150-450 by Automated count (test code = 777-3) Neutrophils/100 leukocytes in 52 % not estab. Blood by Automated count (test code = 770-8) Lymphocytes/100 leukocytes in 37 % not estab. Blood by Automated count (test code = 736-9) Monocytes/100 leukocytes in 8 % not estab. Blood by Automated count (test code = 5905-5) Eosinophils/100 leukocytes in 3 % not estab. Blood by Automated count (test code = 713-8) Basophils/100 leukocytes in 0 % not estab. Blood by Automated count (test code = 706-2) immature cells (test code = pnp immature cells) Neutrophils [#/volume] in Blood 3.5 x10e3/uL 1.4-7.0 by Automated count (test code = 751-8) Lymphocytes [#/volume] in Blood 2.5 x10e3/uL 0.7-3.1 by Automated count (test code = 731-0) Monocytes [#/volume] in Blood 0.5 x10e3/uL 0.1-0.9 by Automated count (test code = 742-7) Eosinophils [#/volume] in Blood 0.2 x10e3/uL 0.0-0.4 by Automated count (test code = 711-2) Basophils [#/volume] in Blood 0.0 x10e3/uL 0.0-0.2 by Automated count (test code = 704-7) Immature granulocytes/100 0 % not estab. leukocytes in Blood by Automated count (test code = 72510-6) Immature granulocytes 0.0 x10e3/uL 0.0-0.1 [#/volume] in Blood by Automated count (test code = 18532-9) Nucleated erythrocytes/100 pnp leukocytes [Ratio] in Blood by Automated count (test code = 38492-6) Morphology [Interpretation] in pnp Blood Narrative (test code = 99612-1) [facility] 2000 [facility] - Serum or [id number] 00:00:00 Test Item Value Reference Range Interpretation Comments Glucose [Mass/volume] in 137 mg/dL 65-99 H Serum or Plasma (test code = 2345-7) Urea nitrogen [Mass/volume] 9 mg/dL 8-27 in Serum or Plasma (test code = 3094-0) Creatinine [Mass/volume] in 0.81 mg/dL 0.76-1.27 Serum or Plasma (test code = 2160-0) Glomerular filtration 88 mL/min/1.73 >59 rate/1.73 sq M.predicted among non-blacks [Volume Rate/Area] in Serum, Plasma or Blood by Creatinine-based formula (CKD-EPI) (test code = 44011-1) Glomerular filtration 102 mL/min/1.73 >59 rate/1.73 sq M.predicted among blacks [Volume Rate/Area] in Serum, Plasma or Blood by Creatinine-based formula (CKD-EPI) (test code = 65641-3) Urea nitrogen/Creatinine 11 10-24 [Mass Ratio] in Serum or Plasma (test code = 3097-3) Sodium [Moles/volume] in 140 mmol/L 134-144 Serum or Plasma (test code = 2951-2) Potassium [Moles/volume] in 4.0 mmol/L 3.5-5.2 Serum or Plasma (test code = 2823-3) Chloride [Moles/volume] in 107 mmol/L 96-106 H Serum or Plasma (test code = 2075-0) Carbon dioxide, total 21 mmol/L 20-29 [Moles/volume] in Serum or Plasma (test code = 8-9) Calcium [Mass/volume] in 8.8 mg/dL 8.6-10.2 Serum or Plasma (test code = 37304-3) Protein [Mass/volume] in 6.7 g/dL 6.0-8.5 Serum or Plasma (test code = 2885-2) Albumin [Mass/volume] in 4.0 g/dL 3.7-4.7 Serum or Plasma (test code = 1751-7) Globulin [Mass/volume] in 2.7 g/dL 1.5-4.5 Serum by calculation (test code = 78626-3) Albumin/Globulin [Mass Ratio] 1.5 1.2-2.2 in Serum or Plasma (test code = 1759-0) Bilirubin.total [Mass/volume] 0.4 mg/dL 0.0-1.2 in Serum or Plasma (test code = 1975-2) Alkaline phosphatase 79 IU/L 48-121 [Enzymatic activity/volume] in Serum or Plasma (test code = 6768-6) Aspartate aminotransferase 23 IU/L 0-40 [Enzymatic activity/volume] in Serum or Plasma (test code = 1920-8) Alanine aminotransferase 23 IU/L 0-44 [Enzymatic activity/volume] in Serum or Plasma (test code = 1742-6) [facility], [id number] 00:00:00 Test Item Value Reference Range Interpretation Comments Cholesterol [Mass/volume] in Serum 108 mg/dL 100-199 or Plasma (test code = 2093-3) Triglyceride [Mass/volume] in Serum 92 mg/dL 0-149 or Plasma (test code = 2571-8) Cholesterol in HDL [Mass/volume] in 34 mg/dL >39 L Serum or Plasma (test code = 2085-9) Cholesterol in VLDL [Mass/volume] 18 mg/dL 5-40 in Serum or Plasma by calculation (test code = 35006-1) Cholesterol in LDL [Mass/volume] in 56 mg/dL 0-99 Serum or Plasma by calculation (test code = 83898-3) Laboratory comment [Text] in Report pnp Narrative (test code = 95442-0) Cholesterol.total/Cholesterol.in 3.2 ratio 0.0-5.0 HDL [Mass ratio] in Serum or Plasma (test code = 9830-1) Cholesterol in LDL/Cholesterol in 1.6 ratio 0.0-3.6 HDL [Mass Ratio] in Serum or Plasma (test code = 96141-6) [facility] HospitalHemoglobin A1c/Hemoglobin.total in [id number] 00:00:00 Test Item Value Reference Range Interpretation Comments Hemoglobin A1c/Hemoglobin.total in 6.4 % 4.8-5.6 H Blood (test code = 4548-4) Glucose mean value [Mass/volume] in 137 mg/dL Blood Estimated from glycated hemoglobin (test code = 09238-4) [facility] HospitalProstate specific Ag [Mass/volume] in Serum or [id number] 00:00:00 Test Item Value Reference Range Interpretation Comments Prostate specific Ag [Mass/volume] 0.3 NG/mL 0.0-4.0 in Serum or Plasma (test code = 2857-1) [facility] assessment panel, [id number] 00:00:00 Test Item Value Reference Range Interpretation Comments Interpretation and review of laboratory note results (test code = 27077-1) Report (test code = 10545-0) . [facility] [id number] 16:29:09 Test Item Value Reference Range Interpretation Comments POC glucose (test code 155 mg/dL 65-99 H [facility] Name: Bambi = [id number]) Javy Lynne D: [id number] able: RN Notified Lab Interpretation Abnormal (test code = 65357-9) [facility] 12 [id number] 15:59:23 Test Item Value Reference Range Interpretation Comments Ventricular rate (test code = 253) Atrial rate (test code = 255) RI interval (test code = 266) QRSD interval (test code = 260) QT interval (test code = 264) QTC interval (test code = 265) P axis 1 (test code = 267) QRS axis 1 (test code = 268) T wave axis (test code = 270) EKG impression (test Sinus tachycardia-No code = 273) previous ECGs available-Electronica lly Signed By Jerry Worrell MD ([id number]) on 12/05/2020 10:59:[address] [facility] CenterCT Abdomen Pelvis W [id number] 00:41:51EXAMINATION: CT ABDOMEN PELVIS W CONTRAST CLINICAL HISTORY: Diverticulitis suspected, Nausea vomiting TECHNIQUE: Multiple axial images of the abdomen and pelvis were obtained following intravenous administration of iodinated contrast. CT imaging was performed with iterative reconstruction technique and/or automated exposure control to reduce radiation dose. COMPARISON: No prior IMPRESSION: ABDOMEN:1. Liver: There is fatty infiltration of liver. No focal mass.2. Gallbladder: The gallbladder is normal.3. Spleen: The spleen is not enlarged.4. Pancreas: The pancreas is unremarkable.5. Adrenal Glands: The adrenal glands are unremarkable.6. Kidneys: The kidneys are unremarkable. No mass, hydronephrosis or calculi.7. Abdominal Aorta: The abdominal aorta is nonaneurysmal.8. Nodes: No enlarged retroperitoneal or mesenteric lymphadenopathy.9. Bowel: Diverticulosis. Wall thickening of the colon with mucosal enhancement compatible with a diffuse colitis. Small bowel unremarkable.10. Ascites: No ascites or fluid collections. PELVIS: 1.Pelvis: No mass, fluid collection or significant adenopathy.2. Bones:Osseous structures intact. No suspicious lesions.3. Lung Bases: Right basilar atelectasis. SUMMARY: 1.Mild diffuse colitis. [facility]- [id number] Interface, Radiology Results [facility] - 12/03/2020 7:45 PM CDT EXAMINATION: CT ABDOMEN PELVIS W CONTRASTCLINICAL HISTORY: Diverticulitis suspected, Nausea vomitingTECHNIQUE: Multiple axial images ofthe abdomen and pelvis were obtained following intravenous administration of iodinated contrast. CT imaging was performed with iterative reconstruction technique and/or automated exposure control to reduce radiation dose.COMPARISON: No priorIMPRESSION:ABDOMEN:1. Liver: There is fatty infiltration of liver. No focal mass.2. Gallbladder: The gallbladder is normal.3. Spleen: The spleen is not enlarged.4. Pancreas: The pancreas is unremarkable.5. Adrenal Glands: The adrenal glands are unremarkable.6. Kidneys: The kidneys are unremarkable. No mass, hydronephrosis or calculi.7. Abdominal Aorta: The abdominal aorta is nonaneurysmal.8. Nodes: No enlarged retroperitoneal or mesenteric lymphadenopathy.9. Bowel: Diverticulosis. Wall thickening of the colon with mucosal enhancement compatible with a diffuse colitis. Small bowel unremarkable.10. Ascites: No ascites or fluid collections.PELVIS:1.Pelvis: No mass, fluid collection or significant adenopathy.2. Bones: Osseous structures intact. No suspicious lesions.3. Lung Bases: Right basilar atelectasis.SUMMARY:1.Mild diffuse colitis.[id number] [facility] CenterUrine [id number] 16:52:08 Test Item Value Reference Range Interpretation Comments Urine culture (test SEE COMMENT Bacteriu gio screen code = [id number]) negative. [facility] CenterXR Chest 1 Vw [id number] 16:48:38EXAMINATION: XR CHEST 1 VW PORTABLE CLINICAL HISTORY: SOB COMPARISON: None IMPRESSION: An AP radiograph of the chest was submitted for interpretation. Bibasilar atelectasis. No focal consolidation or pleural effusion. No pneumothorax or pulmonary edema. The mediastinal contours and cardiac silhouette are unremarkable. The bones are unremarkable. [facility]-[id number] Interface, Radiology Results 12/03/2020 11:51 AM CDT EXAMINATION: XR CHEST 1 VW PORTABLECLINICAL HISTORY: SOBCOMPARISON: NoneIMPRESSION:An AP radiograph of thechest was submitted for interpretation.Bibasilar atelectasis. No focal consolidation or pleural effus ion. No pneumothorax or pulmonary edema.The mediastinal contours and cardiac silhouette are unremarkable.The bones are unremarkable. [facility] [place]-[id number] [facility] Preliminary Interpretation - Not an [id number] 15:08:46 Dung Costello MD 12/03/2020 4:19 [facility] ED Preliminary Interpretation - Not an OrderPerformed by: Dung Costello [facility] GULFPORTuthorized by: Dung Costello MD ECG reviewed by ED Physician in the absence of a gas appliance installer: yes Interpretation: Interpretation: normal Rate: ECG rate: 116 ECG rate assessment: tachycardic Rhythm: Rhythm: sinus rhythm Ectopy: Ectopy: none QRS: QRS axis: Normal QRS intervals: NormalConduction: Conduction: normal ST segments: ST segments: NormalT waves: T waves: normalZoroastrianism HospitalFr T4 and TSH panel - Serum or [id number] 00:00:00 Test Item Value Reference Range Interpretation Comments Thyrotropin [Units/volume] in 1.690 uIU/mL 0.450-4.500 Serum or Plasma by Detection limit <= 0.005 mIU/L (test code = 26638-9) Thyroxine (T4) free 1.32 NG/dL 0.82-1.77 [Mass/volume] in Serum or Plasma (test code = 3024-7) [facility] W Auto Differential panel - Blood 2020-08-21 00:00:00 Test Item Value Reference Range Interpretation Comments Leukocytes [#/volume] in Blood 7.7 x10e3/uL 3.4-10.8 by Automated count (test code = 6690-2) Erythrocytes [#/volume] in 4.62 x10e6/uL 4.14-5.80 Blood by Automated count (test code = 789-8) Hemoglobin [Mass/volume] in 15.6 g/dL 13.0-17.7 Blood (test code = 718-7) Hematocrit [Volume Fraction] of 45.3 % 37.5-51.0 Blood by Automated count (test code = 4544-3) MCV [Entitic volume] by 98 fL 79-97 H Automated count (test code = 787-2) MCH [Entitic mass] by Automated 33.8 pg 26.6-33.0 H count (test code = 785-6) MCHC [Mass/volume] by Automated 34.4 g/dL 31.5-35.7 count (test code = 786-4) Erythrocyte distribution width 11.9 % 11.6-15.4 [Ratio] by Automated count (test code = 788-0) Platelets [#/volume] in Blood 264 x10e3/uL 150-450 by Automated count (test code = 777-3) Neutrophils/100 leukocytes in 60 % not estab. Blood by Automated count (test code = 770-8) Lymphocytes/100 leukocytes in 29 % not estab. Blood by Automated count (test code = 736-9) Monocytes/100 leukocytes in 8 % not estab. Blood by Automated count (test code = 5905-5) Eosinophils/100 leukocytes in 3 % not estab. Blood by Automated count (test code = 713-8) Basophils/100 leukocytes in 0 % not estab. Blood by Automated count (test code = 706-2) immature cells (test code = pnp immature cells) Neutrophils [#/volume] in Blood 4.6 x10e3/uL 1.4-7.0 by Automated count (test code = 751-8) Lymphocytes [#/volume] in Blood 2.2 x10e3/uL 0.7-3.1 by Automated count (test code = 731-0) Monocytes [#/volume] in Blood 0.6 x10e3/uL 0.1-0.9 by Automated count (test code = 742-7) Eosinophils [#/volume] in Blood 0.2 x10e3/uL 0.0-0.4 by Automated count (test code = 711-2) Basophils [#/volume] in Blood 0.0 x10e3/uL 0.0-0.2 by Automated count (test code = 704-7) Immature granulocytes/100 0 % not estab. leukocytes in Blood by Automated count (test code = 13374-3) Immature granulocytes 0.0 x10e3/uL 0.0-0.1 [#/volume] in Blood by Automated count (test code = 80421-7) Nucleated erythrocytes/100 pnp leukocytes [Ratio] in Blood by Automated count (test code = 06147-6) Morphology [Interpretation] in pnp Blood Narrative (test code = 02413-6) [facility] ProgramComprehensive metabolic 2000 panel - Serum or [id number] 00:00:00 Test Item Value Reference Range Interpretation Comments Glucose [Mass/volume] in Serum 139 mg/dL 65-99 H or Plasma (test code = 2345-7) Urea nitrogen [Mass/volume] in 12 mg/dL 8-27 Serum or Plasma (test code = 3094-0) Creatinine [Mass/volume] in 0.98 mg/dL 0.76-1.27 Serum or Plasma (test code = 2160-0) Glomerular filtration 77 mL/min/1.73 >59 rate/1.73 sq M.predicted among non-blacks [Volume Rate/Area] in Serum, Plasma or Blood by Creatinine-based formula (CKD-EPI) (test code = 58337-9) Glomerular filtration 89 mL/min/1.73 >59 rate/1.73 sq M.predicted among blacks [Volume Rate/Area] in Serum, Plasma or Blood by Creatinine-based formula (CKD-EPI) (test code = 91068-2) Urea nitrogen/Creatinine [Mass 12 10-24 Ratio] in Serum or Plasma (test code = 3097-3) Sodium [Moles/volume] in Serum 140 mmol/L 134-144 or Plasma (test code = 2951-2) Potassium [Moles/volume] in 4.5 mmol/L 3.5-5.2 Serum or Plasma (test code = 2823-3) Chloride [Moles/volume] in 104 mmol/L 96-106 Serum or Plasma (test code = 5-0) Carbon dioxide, total 24 mmol/L 20-29 [Moles/volume] in Serum or Plasma (test code = 2027-9) Calcium [Mass/volume] in Serum 9.2 mg/dL 8.6-10.2 or Plasma (test code = 11192-5) Protein [Mass/volume] in Serum 7.2 g/dL 6.0-8.5 or Plasma (test code = 2885-2) Albumin [Mass/volume] in Serum 4.3 g/dL 3.7-4.7 or Plasma (test code = 1751-7) Globulin [Mass/volume] in 2.9 g/dL 1.5-4.5 Serum by calculation (test code = 75203-8) Albumin/Globulin [Mass Ratio] 1.5 1.2-2.2 in Serum or Plasma (test code = 1759-0) Bilirubin.total [Mass/volume] 0.7 mg/dL 0.0-1.2 in Serum or Plasma (test code = 1974-2) Alkaline phosphatase 86 IU/L 39-117 [Enzymatic activity/volume] in Serum or Plasma (test code = 6768-6) Aspartate aminotransferase 19 IU/L 0-40 [Enzymatic activity/volume] in Serum or Plasma (test code = 1920-8) Alanine aminotransferase 22 IU/L 0-44 [Enzymatic activity/volume] in Serum or Plasma (test code = 1742-6) [facility] HospitalLipid 1996 panel - Serum or Plasma 2020-08-21 00:00:00 Test Item Value Reference Range Interpretation Comments Cholesterol [Mass/volume] in Serum 112 mg/dL 100-199 or Plasma (test code = 2093-3) Triglyceride [Mass/volume] in Serum 72 mg/dL 0-149 or Plasma (test code = 2571-8) Cholesterol in HDL [Mass/volume] in 33 mg/dL >39 L Serum or Plasma (test code = 2085-9) Cholesterol in VLDL [Mass/volume] 15 mg/dL 5-40 in Serum or Plasma by calculation (test code = 68191-6) Cholesterol in LDL [Mass/volume] in 64 mg/dL 0-99 Serum or Plasma by calculation (test code = 25852-0) Laboratory comment [Text] in Report pnp Narrative (test code = 13912-1) [facility] HospitalHemoglobin A1c/Hemoglobin.total in [id number] 00:00:00 Test Item Value Reference Range Interpretation Comments Hemoglobin A1c/Hemoglobin.total in 6.7 % 4.8-5.6 H Blood (test code = 4548-4) [facility]Mass/volume[facility] in Urine 2020-08-21 00:00:00 Test Item Value Reference Range Interpretation Comments Microalbumin [Mass/volume] in Urine 4.5 ug/mL not estab. (test code = 52621-2) [facility] [Presence] in Respiratory specimen by MOHSEN with probe [id number] 00:00:00 Test Item Value Reference Range Interpretation Comments SARS-CoV-2 (COVID-19) RNA not detected not detected [Presence] in Respiratory specimen by MOHSEN with probe detection (test code = 89351-3) [facility], [id number] 00:00:00 Test Item Value Reference Range Interpretation Comments interpretation (test code = note interpretation) pdf (test code = pdf) . [facility] Hospitaldiabetes patient [id number] 00:00:00 Test Item Value Reference Range Interpretation Comments pdf (test code = pdf) not applicable [facility] HospitalComprehensive [facility] 2000 panel - Serum or [id number] 00:00:00 Test Item Value Reference Range Interpretation Comments Glucose [Mass/volume] in Serum 144 mg/dL 65-99 H or Plasma (test code = 2345-7) Urea nitrogen [Mass/volume] in 15 mg/dL 8-27 Serum or Plasma (test code = 3094-0) Creatinine [Mass/volume] in 0.92 mg/dL 0.76-1.27 Serum or Plasma (test code = 2160-0) Glomerular filtration 83 mL/min/1.73 >59 rate/1.73 sq M.predicted among non-blacks [Volume Rate/Area] in Serum, Plasma or Blood by Creatinine-based formula (CKD-EPI) (test code = 90292-0) Glomerular filtration 96 mL/min/1.73 >59 rate/1.73 sq M.predicted among blacks [Volume Rate/Area] in Serum, Plasma or Blood by Creatinine-based formula (CKD-EPI) (test code = 35683-2) Urea nitrogen/Creatinine [Mass 16 10-24 Ratio] in Serum or Plasma (test code = 3097-3) Sodium [Moles/volume] in Serum 137 mmol/L 134-144 or Plasma (test code = 2951-2) Potassium [Moles/volume] in 4.4 mmol/L 3.5-5.2 Serum or Plasma (test code = 2823-3) Chloride [Moles/volume] in 100 mmol/L 96-106 Serum or Plasma (test code = 2074-0) Carbon dioxide, total 21 mmol/L 20-29 [Moles/volume] in Serum or Plasma (test code = 2027-9) Calcium [Mass/volume] in Serum 9.0 mg/dL 8.6-10.2 or Plasma (test code = 39287-9) Protein [Mass/volume] in Serum 6.8 g/dL 6.0-8.5 or Plasma (test code = 2885-2) Albumin [Mass/volume] in Serum 4.0 g/dL 3.7-4.7 or Plasma (test code = 175-7) Globulin [Mass/volume] in 2.8 g/dL 1.5-4.5 Serum by calculation (test code = 15933-2) Albumin/Globulin [Mass Ratio] 1.4 1.2-2.2 in Serum or Plasma (test code = 1759-0) Bilirubin.total [Mass/volume] 0.6 mg/dL 0.0-1.2 in Serum or Plasma (test code = 1974-2) Alkaline phosphatase 73 IU/L 39-117 [Enzymatic activity/volume] in Serum or Plasma (test code = 6768-6) Aspartate aminotransferase 20 IU/L 0-40 [Enzymatic activity/volume] in Serum or Plasma (test code = 1920-8) Alanine aminotransferase 22 IU/L 0-44 [Enzymatic activity/volume] in Serum or Plasma (test code = 1742-6) [facility] W Auto Differential panel - Blood 2019-12-06 00:00:00 Test Item Value Reference Range Interpretation Comments Leukocytes [#/volume] in Blood 7.7 x10e3/uL 3.4-10.8 by Automated count (test code = 6690-2) Erythrocytes [#/volume] in 4.40 x10e6/uL 4.14-5.80 Blood by Automated count (test code = 789-8) Hemoglobin [Mass/volume] in 14.6 g/dL 13.0-17.7 Blood (test code = 718-7) Hematocrit [Volume Fraction] of 43.5 % 37.5-51.0 Blood by Automated count (test code = 4544-3) MCV [Entitic volume] by 99 fL 79-97 H Automated count (test code = 787-2) MCH [Entitic mass] by Automated 33.2 pg 26.6-33.0 H count (test code = 785-6) MCHC [Mass/volume] by Automated 33.6 g/dL 31.5-35.7 count (test code = 786-4) Erythrocyte distribution width 12.5 % 11.6-15.4 [Ratio] by Automated count (test code = 788-0) Platelets [#/volume] in Blood 281 x10e3/uL 150-450 by Automated count (test code = 777-3) Neutrophils/100 leukocytes in 58 % not estab. Blood by Automated count (test code = 770-8) Lymphocytes/100 leukocytes in 30 % not estab. Blood by Automated count (test code = 736-9) Monocytes/100 leukocytes in 8 % not estab. Blood by Automated count (test code = 5905-5) Eosinophils/100 leukocytes in 3 % not estab. Blood by Automated count (test code = 713-8) Basophils/100 leukocytes in 1 % not estab. Blood by Automated count (test code = 706-2) immature cells (test code = pnp immature cells) Neutrophils [#/volume] in Blood 4.5 x10e3/uL 1.4-7.0 by Automated count (test code = 751-8) Lymphocytes [#/volume] in Blood 2.3 x10e3/uL 0.7-3.1 by Automated count (test code = 731-0) Monocytes [#/volume] in Blood 0.6 x10e3/uL 0.1-0.9 by Automated count (test code = 742-7) Eosinophils [#/volume] in Blood 0.3 x10e3/uL 0.0-0.4 by Automated count (test code = 711-2) Basophils [#/volume] in Blood 0.0 x10e3/uL 0.0-0.2 by Automated count (test code = 704-7) Immature granulocytes/100 0 % not estab. leukocytes in Blood by Automated count (test code = 75463-9) Immature granulocytes 0.0 x10e3/uL 0.0-0.1 [#/volume] in Blood by Automated count (test code = 23016-0) Nucleated erythrocytes/100 pnp leukocytes [Ratio] in Blood by Automated count (test code = 40812-1) Morphology [Interpretation] in pnp Blood Narrative (test code = 53233-7) [facility] Hospital[facility] 1996 [facility] - Serum or Plasma 2019-12-06 00:00:00 Test Item Value Reference Range Interpretation Comments Cholesterol [Mass/volume] in Serum 116 mg/dL 100-199 or Plasma (test code = 2093-3) Triglyceride [Mass/volume] in Serum 97 mg/dL 0-149 or Plasma (test code = 2571-8) Cholesterol in HDL [Mass/volume] in 33 mg/dL >39 L Serum or Plasma (test code = 2085-9) Cholesterol in VLDL [Mass/volume] 19 mg/dL 5-40 in Serum or Plasma by calculation (test code = 87933-3) Cholesterol in LDL [Mass/volume] in 64 mg/dL 0-99 Serum or Plasma by calculation (test code = 26182-3) Laboratory comment [Text] in Report pnp Narrative (test code = 77239-9) [facility] HospitalHemoglobin A1c/Hemoglobin.total in [id number] 00:00:00 Test Item Value Reference Range Interpretation Comments Hemoglobin A1c/Hemoglobin.total in 6.9 % 4.8-5.6 H Blood (test code = 4548-4) Glucose mean value [Mass/volume] in 151 mg/dL Blood Estimated from glycated hemoglobin (test code = 61994-2) [facility] ProgramMicroalbumin [Mass/volume] in Urine 2019-12-06 00:00:00 Test Item Value Reference Range Interpretation Comments Microalbumin [Mass/volume] in Urine 5.1 ug/mL not estab. (test code = 63484-4) [facility] RNA [Presence] in Respiratory specimen by MOHSEN with probe [id number] 12:15:00 Test Item Value Reference Range Interpretation Comments covid 19 (test code = covid 19) not detected [facility]di[facility] patient [id number] 00:00:00 Test Item Value Reference Range Interpretation Comments pdf image (test code = pdf image) . [facility] HospitalHemoglobin A1c/Hemoglobin.total in [id number] 00:00:00 Test Item Value Reference Range Interpretation Comments Hemoglobin A1c/Hemoglobin.total in 7.6 % 4.8-5.6 H Blood (test code = 4548-4) [facility] HospitalProstate specific Ag [Mass/volume] in Serum or [id number] 00:00:00 Test Item Value Reference Range Interpretation Comments Prostate specific Ag [Mass/volume] 0.3 NG/mL 0.0-4.0 in Serum or Plasma (test code = 2857-1) [facility] HospitalCOVID-19 RNA, QL, cloth colorer-PCR, unspecified [id number] 00:00:00 Test Item Value Reference Range Interpretation Comments sars-cov-2, MOHSEN (test code = not detected not detected sars-cov-2, MOHSEN) [facility] Hospitalrap[facility] flu (A+B)2019-08-10 10:09:00 Test Item Value Reference Range Interpretation Comments Flu (test code = Flu) negative [facility]rap[facility] flu (A+B)2019-08-10 10:09:00 Test Item Value Reference Range Interpretation Comments Flu (test code = Flu) negative [facility] HospitalBacteria identified in Unspecified specimen by Respiratory [id number] 00:00:00 Test Item Value Reference Range Interpretation Comments Bacteria identified in Unspecified comment specimen by Respiratory culture (test code = 23602-0) [facility] HospitalHepatitis C virus Ab Signal/Cutoff in Serum or Plasma by [id number] 00:00:00 Test Item Value Reference Range Interpretation Comments Hepatitis C virus Ab Signal/Cutoff in <0.1 0.0-0.9 Serum or Plasma by Immunoassay (test code = 71595-1) [facility] [id number] 17:40:00 Test Item Value Reference Range Interpretation Comments Rate & Rhythm (test code = Rate & 77 bpm Rhythm) RI Interval (test code = RI Interval) 155 QRS Duration (test code = QRS 96 ms Duration) QT Interval (test code = QT Interval) 356/388 [facility] [id number] 17:40:00 Test Item Value Reference Range Interpretation Comments Rate & Rhythm (test code = Rate & 77 bpm Rhythm) RI Interval (test code = RI Interval) 155 QRS Duration (test code = QRS 96 ms Duration) QT Interval (test code = QT Interval) 356/388 [facility] - Serum or [id number] 00:00:00 Test Item Value Reference Range Interpretation Comments Glucose [Mass/volume] in Serum 197 mg/dL 65-99 H or Plasma (test code = 2345-7) Urea nitrogen [Mass/volume] in 14 mg/dL 8-27 Serum or Plasma (test code = 3094-0) Creatinine [Mass/volume] in 0.93 mg/dL 0.76-1.27 Serum or Plasma (test code = 2160-0) eGFR if nonafricn AM (test 82 mL/min/1.73 >59 code = eGFR if nonafricn AM) eGFR if africn AM (test code = 95 mL/min/1.73 >59 eGFR if africn AM) Urea nitrogen/Creatinine [Mass 15 10-24 Ratio] in Serum or Plasma (test code = 3097-3) Sodium [Moles/volume] in Serum 140 mmol/L 134-144 or Plasma (test code = 2951-2) Potassium [Moles/volume] in 4.4 mmol/L 3.5-5.2 Serum or Plasma (test code = 2823-3) Chloride [Moles/volume] in 100 mmol/L 96-106 Serum or Plasma (test code = 5-0) Carbon dioxide, total 25 mmol/L 20-29 [Moles/volume] in Serum or Plasma (test code = 2027-9) Calcium [Mass/volume] in Serum 9.3 mg/dL 8.6-10.2 or Plasma (test code = 67162-8) Protein [Mass/volume] in Serum 7.2 g/dL 6.0-8.5 or Plasma (test code = 2885-2) Albumin [Mass/volume] in Serum 4.2 g/dL 3.5-4.8 or Plasma (test code = 1751-7) Globulin [Mass/volume] in 3.0 g/dL 1.5-4.5 Serum by calculation (test code = 58629-4) Albumin/Globulin [Mass Ratio] 1.4 1.2-2.2 in Serum or Plasma (test code = 1759-0) Bilirubin.total [Mass/volume] 0.3 mg/dL 0.0-1.2 in Serum or Plasma (test code = 1974-2) Alkaline phosphatase 74 IU/L 39-117 [Enzymatic activity/volume] in Serum or Plasma (test code = 6768-6) Aspartate aminotransferase 14 IU/L 0-40 [Enzymatic activity/volume] in Serum or Plasma (test code = 1920-8) Alanine aminotransferase 16 IU/L 0-44 [Enzymatic activity/volume] in Serum or Plasma (test code = 1742-6) [facility] 1996 [facility] - Serum or Plasma 2019-05-23 00:00:00 Test Item Value Reference Range Interpretation Comments Cholesterol [Mass/volume] in Serum 137 mg/dL 100-199 or Plasma (test code = 3-3) Triglyceride [Mass/volume] in Serum 82 mg/dL 0-149 or Plasma (test code = 2571-8) Cholesterol in HDL [Mass/volume] in 37 mg/dL >39 L Serum or Plasma (test code = 2085-9) Cholesterol in VLDL [Mass/volume] 16 mg/dL 5-40 in Serum or Plasma by calculation (test code = 05504-3) Cholesterol in LDL [Mass/volume] in 84 mg/dL 0-99 Serum or Plasma by calculation (test code = 36288-3) comment: (test code = comment:) pnp [facility] 2000 panel - Serum [id number] 00:00:00 Test Item Value Reference Range Interpretation Comments Hepatitis A virus IgM Ab [Presence] negative negative in Serum or Plasma by Immunoassay (test code = 73017-2) Hepatitis B virus surface Ag negative negative [Presence] in Serum or Plasma by Immunoassay (test code = 5196-1) Hepatitis B virus core IgM Ab negative negative [Presence] in Serum or Plasma by Immunoassay (test code = 75444-5) Hepatitis C virus Ab Signal/Cutoff <0.1 0.0-0.9 in Serum or Plasma by Immunoassay (test code = 34446-0) [facility] A1c/Hemoglobin.total in [id number] 00:00:00 Test Item Value Reference Range Interpretation Comments Hemoglobin A1c/Hemoglobin.total in 7.5 % 4.8-5.6 H Blood (test code = 4548-4) [facility] surface Ab [Presence] in [id number] 00:00:00 Test Item Value Reference Range Interpretation Comments Hepatitis B virus surface Ab reactive [Presence] in Serum (test code = 97744-1) [facility], [id number] 00:00:00 Test Item Value Reference Range Interpretation Comments interpretation (test code = note interpretation) pdf image (test code = pdf image) . [facility] [id number] 00:00:00 Test Item Value Reference Range Interpretation Comments pdf image (test code = pdf not applicable image) [facility] 2000 [facility] - Serum or [id number] 00:00:00 Test Item Value Reference Range Interpretation Comments Glucose [Mass/volume] in Serum 148 mg/dL 65-99 H or Plasma (test code = 2345-7) Urea nitrogen [Mass/volume] in 15 mg/dL 8-27 Serum or Plasma (test code = 3094-0) Creatinine [Mass/volume] in 0.89 mg/dL 0.76-1.27 Serum or Plasma (test code = 2160-0) eGFR if nonafricn AM (test 86 mL/min/1.73 >59 code = eGFR if nonafricn AM) eGFR if africn AM (test code = 99 mL/min/1.73 >59 eGFR if africn AM) Urea nitrogen/Creatinine [Mass 17 10-24 Ratio] in Serum or Plasma (test code = 3097-3) Sodium [Moles/volume] in Serum 140 mmol/L 134-144 or Plasma (test code = 2951-2) Potassium [Moles/volume] in 4.4 mmol/L 3.5-5.2 Serum or Plasma (test code = 2823-3) Chloride [Moles/volume] in 104 mmol/L 96-106 Serum or Plasma (test code = 5-0) Carbon dioxide, total 21 mmol/L 20-29 [Moles/volume] in Serum or Plasma (test code = 2027-9) Calcium [Mass/volume] in Serum 9.0 mg/dL 8.6-10.2 or Plasma (test code = 85569-4) Protein [Mass/volume] in Serum 7.1 g/dL 6.0-8.5 or Plasma (test code = 2885-2) Albumin [Mass/volume] in Serum 4.3 g/dL 3.5-4.8 or Plasma (test code = 1751-7) Globulin [Mass/volume] in 2.8 g/dL 1.5-4.5 Serum by calculation (test code = 07029-6) Albumin/Globulin [Mass Ratio] 1.5 1.2-2.2 in Serum or Plasma (test code = 1759-0) Bilirubin.total [Mass/volume] 0.7 mg/dL 0.0-1.2 in Serum or Plasma (test code = 1974-) Alkaline phosphatase 68 IU/L 39-117 [Enzymatic activity/volume] in Serum or Plasma (test code = 6768-6) Aspartate aminotransferase 17 IU/L 0-40 [Enzymatic activity/volume] in Serum or Plasma (test code = 1920-8) Alanine aminotransferase 22 IU/L 0-44 [Enzymatic activity/volume] in Serum or Plasma (test code = 1742-6) [facility] W Auto Differential panel - Blood 2019-01-04 00:00:00 Test Item Value Reference Range Interpretation Comments Leukocytes [#/volume] in Blood 5.9 x10e3/uL 3.4-10.8 by Automated count (test code = 6690-2) Erythrocytes [#/volume] in 4.52 x10e6/uL 4.14-5.80 Blood by Automated count (test code = 789-8) Hemoglobin [Mass/volume] in 15.3 g/dL 13.0-17.7 Blood (test code = 718-7) Hematocrit [Volume Fraction] of 45.6 % 37.5-51.0 Blood by Automated count (test code = 4544-3) Erythrocyte mean corpuscular 101 fL 79-97 H volume [Entitic volume] by Automated count (test code = 787-2) Erythrocyte mean corpuscular 33.8 pg 26.6-33.0 H hemoglobin [Entitic mass] by Automated count (test code = 785-6) Erythrocyte mean corpuscular 33.6 g/dL 31.5-35.7 hemoglobin concentration [Mass/volume] by Automated count (test code = 786-4) Erythrocyte distribution width 13.5 % 12.3-15.4 [Ratio] by Automated count (test code = 788-0) Platelets [#/volume] in Blood 230 x10e3/uL 150-450 by Automated count (test code = 777-3) Neutrophils/100 leukocytes in 56 % not estab. Blood by Automated count (test code = 770-8) Lymphocytes/100 leukocytes in 33 % not estab. Blood by Automated count (test code = 736-9) Monocytes/100 leukocytes in 7 % not estab. Blood by Automated count (test code = 5905-5) Eosinophils/100 leukocytes in 4 % not estab. Blood by Automated count (test code = 713-8) Basophils/100 leukocytes in 0 % not estab. Blood by Automated count (test code = 706-2) immature cells (test code = pnp immature cells) Neutrophils [#/volume] in Blood 3.3 x10e3/uL 1.4-7.0 by Automated count (test code = 751-8) Lymphocytes [#/volume] in Blood 1.9 x10e3/uL 0.7-3.1 by Automated count (test code = 731-0) Monocytes [#/volume] in Blood 0.4 x10e3/uL 0.1-0.9 by Automated count (test code = 742-7) Eosinophils [#/volume] in Blood 0.2 x10e3/uL 0.0-0.4 by Automated count (test code = 711-2) Basophils [#/volume] in Blood 0.0 x10e3/uL 0.0-0.2 by Automated count (test code = 704-7) immature granulocytes (test 0 % not estab. code = immature granulocytes) Granulocytes Immature 0.0 x10e3/uL 0.0-0.1 [#/volume] in Blood by Automated count (test code = 74791-7) Nucleated erythrocytes/100 pnp leukocytes [Ratio] in Blood by Automated count (test code = 35609-0) Morphology [interpretation] in pnp Blood Narrative (test code = 93578-4) [facility], [id number] 00:00:00 Test Item Value Reference Range Interpretation Comments Cholesterol [Mass/volume] in Serum 189 mg/dL 100-199 or Plasma (test code = 2093-3) Triglyceride [Mass/volume] in Serum 132 mg/dL 0-149 or Plasma (test code = 2571-8) Cholesterol in HDL [Mass/volume] in 38 mg/dL >39 L Serum or Plasma (test code = 2085-9) Cholesterol in VLDL [Mass/volume] 26 mg/dL 5-40 in Serum or Plasma by calculation (test code = 43012-2) Cholesterol in LDL [Mass/volume] in 125 mg/dL 0-99 H Serum or Plasma by calculation (test code = 45019-1) comment: (test code = comment:) pnp Cholesterol.total/Cholesterol.in 5.0 ratio 0.0-5.0 HDL [Mass ratio] in Serum or Plasma (test code = 9830-1) Cholesterol in LDL/Cholesterol in 3.3 ratio 0.0-3.6 HDL [Mass Ratio] in Serum or Plasma (test code = 45058-3) [facility] A1c/Hemoglobin.total in [id number] 00:00:00 Test Item Value Reference Range Interpretation Comments Hemoglobin A1c/Hemoglobin.total in 6.5 % 4.8-5.6 H Blood (test code = 4548-4) [facility] Urine 2019-01-04 00:00:00 Test Item Value Reference Range Interpretation Comments Microalbumin [Mass/volume] in Urine 6.9 ug/mL not estab. (test code = 14434-0) [facility] HospitalTSH reflex to [id number] 00:00:00 Test Item Value Reference Range Interpretation Comments Thyrotropin [Units/volume] in 1.370 uIU/mL 0.450-4.500 Serum or Plasma by Detection limit <= 0.005 mIU/L (test code = 89726-0) [facility], [id number] 00:00:00 Test Item Value Reference Range Interpretation Comments interpretation (test code = note interpretation) pdf image (test code = pdf image) . [facility] [id number] 00:00:00 Test Item Value Reference Range Interpretation Comments pdf image (test code = pdf not applicable image) [facility]
[2021-07-31] MEDS ORDERED: BENZONATATE 100 MG CAP PO ONE (08:24)
--- NOTE | 2021-07-31 08:48 | RAD REPORT ---
EXAM DESCRIPTION: RAD - Chest Single View - 07/31/2021 8:43 am CLINICAL HISTORY: Chest pain;Cough;Congestion COMPARISON: ABDOMEN 1 VIEW KUB dated 01/08/2014 FINDINGS: Lines: None. Lungs: No evidence of edema or pneumonia. Pleural: No significant pleural effusions or pneumothorax. Cardiac: The heart size is within normal limits. Bones: No acute fractures. Other: IMPRESSION: No acute cardiopulmonary disease.
[2021-07-31 09:43] LABS: SARS-COV-2 RT PCR NEGATIVE (NEGATIVE)
--- NOTE | 2021-07-31 10:16 | ER ---
Nurse's Notes [facility] Name: Ever Coles Age: 75 yrs Sex: Male : 1945 Arrival Date: 07/31/2021 Time: 07:40 Bed 5 Private MD: Diagnosis: Acute bronchitis, unspecified Presentation: 07/31 08:00 Chief complaint: Patient states: Cough and congestion x 2 weeks, denies fever. jl7 Coronavirus screen: Vaccine status: Patient reports receiving the 2nd dose of the covid vaccine. Moderna congestion, cough unrelated to allergies, Client presents with at least one sign or symptom that may indicate coronavirus-19. Standard/surgical mask placed on the client. Provider contacted for isolation considerations. Ebola Screen: No symptoms or risks identified at this time. Initial Sepsis Screen: Does the patient meet any 2 criteria? No. Patient's initial sepsis screen is negative. Does the patient have a suspected source of infection? No. Patient's initial sepsis screen is negative. Risk Assessment: Do you want to hurt yourself or someone else? Patient reports no desire to harm self or others. Onset of symptoms was July 17, 2021. 08:00 Method Of Arrival: Ambulatory jl7 08:00 Acuity: ROMEO 3 jl7 Triage Assessment: 08:01 General: Appears in no apparent distress. uncomfortable, Behavior is calm, cooperative, jl7 appropriate for age. Pain: Denies pain. Respiratory: not auscultated in triage. Historical: - Allergies: 08:01 No Known Allergies; jl7 - Home Meds: 08:01 Jardiance oral [Active]; Metformin Oral [Active]; Enalapril Oral [Active]; Albuterol jl7 Inhl [Active]; - PMHx: 08:01 Diabetes mellitus; Hypertensive disorder; Asthma; jl7 - Immunization history:: Adult Immunizations up to date. - Social history:: Smoking status: Patient denies any tobacco usage or history of. Screenin:28 Abuse screen: Denies threats or abuse. Denies injuries from another. Nutritional jg9 screening: No deficits noted. Tuberculosis screening: No symptoms or risk factors identified. Fall Risk None identified. Assessment: 08:28 Cardiovascular: Capillary refill < 3 seconds. Respiratory: Reports cough that is jg9 productive, Airway is patent. Vital Signs: 08:00 BP 114 / 72; Pulse 90; Resp 17; Temp 97.9; Pulse Ox 96% ; Weight 68.95 kg; Height 5 ft. jl7 4 in. (162.56 cm); Pain 0/10; 08:15 BP 105 / 76; Pulse 94; Resp 17 S; Pulse Ox 98% on R/A; Pain 0/10; jg9 09:50 BP 110 / 70; Pulse 81; Resp 18 S; Pulse Ox 94% on R/A; Pain 0/10; jg9 10:15 BP 104 / 68; Pulse 64; Resp 20 S; Pulse Ox 94% on R/A; jg9 08:00 Body Mass Index 26.09 (68.95 kg, 162.56 cm) 7 ED Course: 07:40 Patient arrived in ED. as 07:52 Charley Loo, RN is Primary Nurse. [facility] 07:57 Nilson Howe MD is Attending Physician. kdr 08:01 Triage completed. jl7 08:01 Arm band placed on right wrist. 7 08:28 Patient has correct armband on for positive identification. jg9 08:43 CXR XRAY In Process Unspecified. EDMS 08:43 X-ray completed. Portable x-ray completed in exam room. Patient tolerated procedure mh1 well. 09:56 No apparent distress. Resting quietly. Awaiting lab results, Awaiting radiology jg9 results. Awaiting disposition. 10:37 No provider procedures requiring assistance completed. jg9 10:38 Patient did not have IV access during this emergency room visit. jg9 Administered Medications: 08:28 Drug: Tessalon Perle (benzonatate) 200 mg Route: PO; [facility] 09:03 Follow up: Response: No adverse reaction jg9 Outcome: 10:15 Discharge ordered by . kdr 10:37 Discharged to home ambulatory. jg9 10:37 Condition: stable 10:37 Discharge instructions given to patient. 10:38 Patient left the ED. jg9 Signatures: Dispatcher [employer] EDMS Nilson Howe MD MD [facility] Therese Roberto 1 Mel Costello Jahala, RN RN 7 Charley Loo RN RN [facility] Zabala, Charley, RN RN jg9
--- NOTE | 2021-07-31 10:16 | EDPHYS ---
Physician Documentation [facility] Name: Ever Coles Age: 75 yrs Sex: Male : 1945 Arrival Date: 07/31/2021 Time: 07:40 Bed 5 Private MD: ED Physician Nilson Howe HPI: 07/31 08:41 This 75 yrs old Male presents to ER via Ambulatory with complaints of Cough, kdr Congestion. 08:41 The patient or guardian reports cough, that is intermittent, described as mild, with kdr productive sputum, that is green, difficulty breathing. Onset: The symptoms/episode began/occurred gradually, 2 week(s) ago. Severity of symptoms: At their worst the symptoms were mild, in the emergency department the symptoms are unchanged. Modifying factors: The symptoms are alleviated by nothing, the symptoms are aggravated by nothing. Associated signs and symptoms: The patient has no apparent associated signs or symptoms. The patient has not experienced similar symptoms in the past. The patient has not recently seen a physician. The patient is non-toxic appearing in the ED. He presents with 2 weeks of cough and congestion. Most recently he started to have green sputum. Historical: - Allergies: 08:01 No Known Allergies; jl7 - Home Meds: 08:01 Jardiance oral [Active]; Metformin Oral [Active]; Enalapril Oral [Active]; Albuterol jl7 Inhl [Active]; - PMHx: 08:01 Diabetes mellitus; Hypertensive disorder; Asthma; jl7 - Immunization history:: Adult Immunizations up to date. - Social history:: Smoking status: Patient denies any tobacco usage or history of. ROS: 08:41 Constitutional: Negative for fever, chills, and weight loss, Eyes: Negative for injury, kdr pain, redness, and discharge, ENT: Negative for injury, pain, and discharge, Neck: Negative for injury, pain, and swelling, Cardiovascular: Negative for chest pain, palpitations, and edema, Abdomen/GI: Negative for abdominal pain, nausea, vomiting, diarrhea, and constipation, Back: Negative for injury and pain, : Negative for injury, bleeding, discharge, and swelling, MS/Extremity: Negative for injury and deformity, Skin: Negative for injury, rash, and discoloration, Neuro: Negative for headache, weakness, numbness, tingling, and seizure activity. Psych: Negative for depression, anxiety, suicide ideation, homicidal ideation, and hallucinations, Allergy/Immunology: Negative for hives, rash, and allergies, Endocrine: Negative for neck swelling, polydipsia, polyuria, polyphagia, and marked weight changes, Hematologic/Lymphatic: Negative for swollen nodes, abnormal bleeding, and unusual bruising. 08:41 Respiratory: Positive for cough, with green sputum, Negative for dyspnea on exertion, hemoptysis, orthopnea, pleurisy, shortness of breath, sputum production, wheezing. Exam: 08:41 Constitutional: This is a well developed, well nourished patient who is awake, alert, kdr and in no acute distress. Head/Face: Normocephalic, atraumatic. Eyes: Pupils equal round and reactive to light, extra-ocular motions intact. Lids and lashes normal. Conjunctiva and sclera are non-icteric and not injected. Cornea within normal limits. Periorbital areas with no swelling, redness, or edema. Neck: Trachea midline, no thyromegaly or masses palpated, and no cervical lymphadenopathy. Supple, full range of motion without nuchal rigidity, or vertebral point tenderness. No Meningismus. Chest/axilla: Normal chest wall appearance and motion. Nontender with no deformity. No lesions are appreciated. Cardiovascular: Regular rate and rhythm with a normal S1 and S2. No gallops, murmurs, or rubs. Normal PMI, no JVD. No pulse deficits. Respiratory: Lungs have equal breath sounds bilaterally, clear to auscultation and percussion. No rales, rhonchi or wheezes noted. No increased work of breathing, no retractions or nasal flaring. Abdomen/GI: Soft, non-tender, with normal bowel sounds. No distension or tympany. No guarding or rebound. No evidence of tenderness throughout. Back: No spinal tenderness. No costovertebral tenderness. Full range of motion. Skin: Warm, dry with normal turgor. Normal color with no rashes, no lesions, and no evidence of cellulitis. MS/ Extremity: Pulses equal, no cyanosis. Neurovascular intact. Full, normal range of motion. Neuro: Awake and alert, GCS 15, oriented to person, place, time, and situation. Cranial nerves II-XII grossly intact. Motor strength 5/5 in all extremities. Sensory grossly intact. Cerebellar exam normal. Normal gait. Psych: Awake, alert, with orientation to person, place and time. Behavior, mood, and affect are within normal limits. Vital Signs: 08:00 BP 114 / 72; Pulse 90; Resp 17; Temp 97.9; Pulse Ox 96% ; Weight 68.95 kg; Height 5 ft. jl7 4 in. (162.56 cm); Pain 0/10; 08:15 BP 105 / 76; Pulse 94; Resp 17 S; Pulse Ox 98% on R/A; Pain 0/10; jg9 09:50 BP 110 / 70; Pulse 81; Resp 18 S; Pulse Ox 94% on R/A; Pain 0/10; jg9 10:15 BP 104 / 68; Pulse 64; Resp 20 S; Pulse Ox 94% on R/A; jg9 08:00 Body Mass Index 26.09 (68.95 kg, 162.56 cm) jl7 MDM: 08:41 Data reviewed: vital signs, nurses notes, lab test result(s), radiologic studies. kdr Counseling: I had a detailed discussion with the patient and/or guardian regarding: the historical points, exam findings, and any diagnostic results supporting the discharge/admit diagnosis, lab results, radiology results, the need for outpatient follow up. 10:15 Patient medically screened. kdr 07/31 08:14 Order name: CXR XRAY; Complete Time: 08:56 kdr 07/31 08:14 Order name: Group A Streptococcus Rapid Sc; Complete Time: 10:12 EDCT 07/31 08:58 Order name: COVID-19/FLU A+B (Document "Date of Onset" if Symptomatic); Complete Time: jl7 10:12 07/31 09:33 Order name: Throat Culture EDMS Administered Medications: 08:28 Drug: Tessalon Perle (benzonatate) 200 mg Route: PO; jh6 09:03 Follow up: Response: No adverse reaction jg9 Disposition Summary: 07/31/21 10:15 Discharge Ordered Location: Home kdr Problem: new kdr Symptoms: have improved kdr Condition: Stable kdr Diagnosis - Acute bronchitis, unspecified kdr Followup: kdr - With: Private Physician - When: 2 - 3 days - Reason: If symptoms return, Further diagnostic work-up, Recheck today's complaints, Continuance of care, Re-evaluation by your physician Discharge Instructions: - Discharge Summary Sheet kdr - Acute Bronchitis, Adult kdr Forms: - Medication Reconciliation Form kdr - Thank You Letter kdr Prescriptions: - Tessalon Perles 100 mg Oral Capsule - take 1 capsule by ORAL route every 8 hours As needed; 15 capsule; Refills: 0, kdr Product Selection Permitted Signatures: Dispatcher [employer] Nilson Phelan MD MD kdr Leal, Jahala RN RN jl7 Charley Loo RN RN jh6 Charley Zabala RN jg9
[2021-07-31 10:42] VITALS: TEMP 97.9
[2021-07-31 10:44] VITALS: O2SAT 94
[2021-07-31 10:46] VITALS: BP 104/68
== END 2021-07-31 10:38 | disposition home or self-care (01) ==
LOC: ER 07:38
DX: J20.9 Acute bronchitis, unspecified (principal); I10 Essential (primary) hypertension; E11.9 Type 2 diabetes mellitus without complications; Z20.822 Contact with and (suspected) exposure to COVID-19
CPT/HCPCS: 87070; 87081; 0240U; 71045; 99283